=== PATIENT | male | born 1980 | race Caucasian/White ===

== ENCOUNTER 2023-01-11 14:36 | Emergency (ER) | payer OTHER ==
[~2023-01-11] VITALS: Ht 172.7 cm; Wt 95.3 kg
[2023-01-11] MEDS ORDERED: HYDROMORPHONE 1 MG/1 ML DISP.SYRIN ONE ×3 (15:13→17:59)
[2023-01-11] MEDS ORDERED: ONDANSETRON 4 MG/2 ML VIAL ONE (15:13)
[2023-01-11] MEDS ORDERED: ONDANSETRON 4 MG/2 ML VIAL IV ONE (15:15)
[2023-01-11] MEDS ORDERED: HYDROMORPHONE 1 MG/1 ML DISP.SYRIN IV ONE ×3 (15:15→17:45)
[2023-01-11 18:19] VITALS: O2SAT 98
== END 2023-01-11 18:20 | disposition short-term general hospital (02) ==
LOC: ER 14:39
DX: S42.212A Unspecified displaced fracture of surgical neck of left humerus, initial encounter for closed fracture (principal); F32.A Depression, unspecified; F41.9 Anxiety disorder, unspecified; W01.0XXA Fall on same level from slipping, tripping and stumbling without subsequent striking against object, initial encounter; Y93.89 Activity, other specified; Y92.89 Other specified places as the place of occurrence of the external cause; Y99.8 Other external cause status
CPT/HCPCS: 99285; 96374; 96375; 73020; 96376; J2405; J1170 ×3; A4606; A4663